=== PATIENT | female | born 1995 | race Hispanic/Latino ===

== ENCOUNTER 2019-04-11 19:08 | Inpatient (IN) | payer OTHER ==
[~2019-04-11 19:08] MED LIST: Bupivacaine HCl 0.5%/Epinephrine 1:200,000/PF 30 ml Vial ONE; Bupivacaine/Epinephrine 0.25% 30 ML VIAL ONE
[2019-04-11] MEDS: Lactated Ringer's 1,000 ML IV SCH (19:40)
[2019-04-11] MEDS ORDERED: Ondansetron PF 4 MG/2 ML Vial IVP PRN (19:48)
[2019-04-11] MEDS ORDERED: Butorphanol Tartrate 1 MG/ML VIAL SLOW IVP PRN (19:48)
[2019-04-11] MEDS ORDERED: hydrALAZINE 20 MG/ML VIAL SLOW IVP PRN (19:48)
[2019-04-11] MEDS ORDERED: Promethazine HCl 25 MG/ML VIAL IM PRN (19:48)
[2019-04-11] MEDS ORDERED: Acetaminophen 500 MG TAB PO PRN (19:48)
[2019-04-11 19:54] LABS: Hemoglobin 13.8 g/dL (12.0-16.0); Mean Corpuscular Hemoglobin 32.2 pg (27.0-31.0); Mean Platelet Volume 9.9 fL (7.4-10.4); Platelet Count 154 thou/uL (130-400); RBC Distribution Width 12.5 % (11.5-14.5); Red Blood Cell (RBC) Count 4.29 mill/uL (4.20-5.40); White Blood Cell (WBC) Count 12.1 thou/uL (4.8-10.8)
[2019-04-11] MEDS ORDERED: Misoprostol 200 MCG TAB RC PRN (20:00)
[2019-04-11] MEDS ORDERED: Lidocaine 1% (PF) 30 ML VIAL SC PRN (20:00)
[2019-04-11] MEDS ORDERED: NS w/ Oxytocin 10 units 500 ML IV SCH (20:00)
[2019-04-11] MEDS ORDERED: HYDROcodone/Acetaminophen 5/325 mg Tablet PO PRN ×2 (20:00)
[2019-04-11] MEDS ORDERED: Methylergonovine 0.2 MG/ML VIAL IM PRN (20:00)
[2019-04-11] MEDS ORDERED: Ibuprofen 800 MG TAB PO PRN (20:00)
[2019-04-11] MEDS ORDERED: NS / Oxytocin 40 units/1000ml 1,000 ML IV SCH (20:00)
[2019-04-11] MEDS ORDERED: Carboprost 250 MCG/ML AMP IM PRN (20:00)
[2019-04-11 20:07] VITALS: BMI 21.1
[2019-04-11] MEDS: Misoprostol 100 MCG TAB VAG SCH (20:11)
[2019-04-11 20:33] LABS: Syphilis Antibody Nonreactive (Nonreactive); Syphilis Antibody Index 0.03 S/CO (<1.00 Non-Reactive)
[2019-04-11 22:40] LABS: HBSAg Index 0.28 S/CO (0-0.99); HIV (1/2) Antibody/Antigen Non-Reactive (NonReactive); HIV 1/2 INDEX 0.06 S/CO (<1.00); Hep B Surf Ag Non-Reactive S/CO (NonReactive)
[2019-04-12] MEDS: Misoprostol 100 MCG TAB VAG SCH (00:15)
[2019-04-12] MEDS: NS w/ Oxytocin 10 units 500 ML IV SCH ×2 (00:16→09:48)
[2019-04-12] MEDS: Lactated Ringer's 1,000 ML IV SCH ×2 (03:46→17:26)
[2019-04-12] MEDS ORDERED: Fentanyl 4 mcg/Bup 0.1% Cadd 100 ML ONE ×2 (07:24→15:50)
[2019-04-12] MEDS ORDERED: Lidocaine 1.5%/Epinephrine 1:200,000 5 ML AMPUL IJ ONE (07:35)
[2019-04-12] MEDS ORDERED: diphenhydrAMINE 50 MG/ML VIAL IVP PRN (08:47)
[2019-04-12] MEDS ORDERED: ePHEDrine/0.9% NaCl/PF SYRINGE 50 mg/10 ml SLOW IVP PRN (08:47)
[2019-04-12] MEDS ORDERED: Ondansetron PF 4 MG/2 ML Vial IVP PRN ×2 (08:47→21:08)
[2019-04-12] MEDS ORDERED: Acetaminophen 325 MG TAB PO PRN (08:47)
[2019-04-12] MEDS ORDERED: Naloxone HCl 0.4 mg/ml Vial IVP PRN ×2 (08:47)
[2019-04-12] MEDS ORDERED: Promethazine HCl 25 MG/ML VIAL IM PRN ×2 (08:47→21:08)
[2019-04-12] MEDS ORDERED: Lactated Ringer's 500 ML IV PRN (08:47)
[2019-04-12] MEDS ORDERED: Communication Order-Pharmacy FS SCH (09:00)
[2019-04-12] MEDS ORDERED: Fentanyl 4 mcg/Bupivacaine 0.1% Cassette 100 ML EPIDURAL SCH (09:00)
[2019-04-12] MEDS ORDERED: HYDROcodone/Acetaminophen 5/325 mg Tablet PO PRN ×2 (21:08)
[2019-04-12] MEDS ORDERED: NS / Oxytocin 40 units/1000ml 1,000 ML IV SCH (21:08)
[2019-04-12] MEDS ORDERED: Benzocaine-Menthol 82.5 ML CAN TOP PRN (21:08)
[2019-04-12] MEDS ORDERED: Bisacodyl 10 MG SUPP PR PRN (21:08)
[2019-04-12] MEDS ORDERED: hydrALAZINE 20 MG/ML VIAL SLOW IVP PRN (21:08)
[2019-04-12] MEDS ORDERED: diphenhydrAMINE 25 MG CAP PO PRN (21:08)
[2019-04-12] MEDS ORDERED: Preparation H Ointment 28 GM TUBE PR PRN (21:08)
[2019-04-12] MEDS ORDERED: Lanolin Ointment 7 GM TUBE TOP PRN (21:08)
[2019-04-12] MEDS ORDERED: Milk Of Magnesia 30 ML UDCUP PO PRN (21:08)
[2019-04-12] MEDS ORDERED: cloNIDine 0.1 MG TAB PO SCH (21:30)
[2019-04-12] MEDS: Ibuprofen 800 MG TAB PO SCH (21:47)
[2019-04-12] MEDS: Docusate Calcium (SURFAK) 240 MG CAP PO SCH (21:47)
[2019-04-13] MEDS: Misoprostol 100 MCG TAB VAG SCH (01:38)
[2019-04-13] MEDS: Lactated Ringer's 1,000 ML IV SCH (01:39)
[2019-04-13 05:22] LABS: Hemoglobin 12.7 g/dL (12.0-16.0); Mean Corpuscular HGB CONC 33.6 g/dL (32.0-36.0); Mean Corpuscular Hemoglobin 31.6 pg (27.0-31.0); Mean Corpuscular Volume 93.9 fL (78.0-98.0); Platelet Count 124 thou/uL (130-400); RBC Distribution Width 12.5 % (11.5-14.5); Red Blood Cell (RBC) Count 4.03 mill/uL (4.20-5.40); White Blood Cell (WBC) Count 18.1 thou/uL (4.8-10.8)
[2019-04-13] MEDS: Ibuprofen 800 MG TAB PO SCH ×3 (05:52→21:51)
[2019-04-13] MEDS ORDERED: Adacel (T-DAP) 0.5 ML SYRINGE IM ONE (09:00)
[2019-04-13] MEDS: Ferrous Sulfate 325 MG TAB PO SCH ×2 (09:15→16:48)
[2019-04-13] MEDS: Prenatal Vitamin 1 TAB PO SCH (09:33)
[2019-04-13] MEDS: Docusate Calcium (SURFAK) 240 MG CAP PO SCH ×2 (09:33→21:51)
[2019-04-14] MEDS: Ibuprofen 800 MG TAB PO SCH (05:18)
[2019-04-14 08:19] VITALS: BP 117/76; TEMP 98.2
[2019-04-14] MEDS: Docusate Calcium (SURFAK) 240 MG CAP PO SCH (08:58)
[2019-04-14] MEDS: Prenatal Vitamin 1 TAB PO SCH (08:58)
[2019-04-14] MEDS: Ferrous Sulfate 325 MG TAB PO SCH (08:59)
== END 2019-04-14 09:35 | disposition home or self-care (01) | DRG 807 ==
LOC: L&D 19:08 → 3SW 04-12 23:55
PROVIDERS: ADMIT Family Medicine; ATTEND Family Medicine
PROC: 10E0XZZ Delivery of Products of Conception, External Approach (ICD-10-PCS; principal; 2019-04-12)
PROC: 10907ZC Drainage of Amniotic Fluid, Therapeutic from Products of Conception, Via Natural or Artificial Opening (ICD-10-PCS; 2019-04-12)
PROC: 3E0P7VZ Introduction of Hormone into Female Reproductive, Via Natural or Artificial Opening (ICD-10-PCS; 2019-04-12)
PROC: 0HQ9XZZ Repair Perineum Skin, External Approach (ICD-10-PCS; 2019-04-12)
DX: O36.5930 Maternal care for other known or suspected poor fetal growth, third trimester, not applicable or unspecified (principal); Z37.0 Single live birth; Z3A.38 38 weeks gestation of pregnancy; O70.0 First degree perineal laceration during delivery
CPT/HCPCS: 36415; 51702; 85027; 86780; 86850; 86900; 86901; 87340; 87389; J0670; J2590; J3490

== ENCOUNTER 2020-05-01 08:43 | Outpatient (CLI) | payer OTHER ==
--- NOTE | 2020-05-01 11:30 | ULT ---
ULTRASOUND COMPLETE GREATER THAN 14 WEEKS. HISTORY: anatomy. FINDINGS: Single viable intrauterine fetus is noted in a transverse lie on the maternal left side. The placent a is posterior with a low-lying placenta with the placenta edge being within approximately 2 cm of th e internal cervical os, evidence for at least a borderline marginal placenta previa. Consider follow up examination later in . heart rate 146 b.p.m. Amniotic fluid within normal limits. Anatomy: Visualized brain, 4-chamber heart, 3-vessel cord, stomach, bladder, kidneys, spine, and extremi ty regions were unremarkable. Cervical length 4.9 cm. Biometry: BPD 4.6 cm-19 weeks 6 days Head circumference 16.9 cm-19 weeks 4 days Abdominal circumference 14.5 cm-19 weeks 6 days Femur length 3.1 cm-19 weeks 5 days Gestational age average 19 weeks 6 days. Estimated date of delivery 09/19/2020. Estimated weight 308 gm. IMPRESSION: Somewhat low-lying posterior placenta consistent with a borderline marginal previa at this time. Consider followup examination in that regard later in . POS: OFF
== END 2020-05-01 08:44 | disposition home or self-care (01) ==
LOC: BICULT 08:43
PROVIDERS: ATTEND Family Medicine
DX: O44.42 Low lying placenta NOS or without hemorrhage, second trimester (principal); Z3A.19 19 weeks gestation of pregnancy
CPT/HCPCS: 76805

== ENCOUNTER 2020-09-06 03:54 | Inpatient (IN) | payer MEDICAID, OTHER, SELFPAY ==
[2020-09-06] MEDS ORDERED: Acetaminophen 500 MG TAB PO PRN (05:02)
[2020-09-06] MEDS ORDERED: Lidocaine 1% (PF) 30 ML VIAL SC PRN (05:02)
[2020-09-06] MEDS ORDERED: Methylergonovine 0.2 MG/ML VIAL IM PRN (05:02)
[2020-09-06] MEDS ORDERED: NS / Oxytocin 40 units/1000ml 1,000 ML IV PRN (05:02)
[2020-09-06] MEDS ORDERED: Diphenoxylate HCl/Atropine Tablet PO PRN ×2 (05:02)
[2020-09-06] MEDS ORDERED: Promethazine HCl 25 MG/ML VIAL IM PRN ×3 (05:02→08:18)
[2020-09-06] MEDS ORDERED: Butorphanol Tartrate 1 MG/ML VIAL SLOW IVP PRN (05:02)
[2020-09-06] MEDS ORDERED: Ibuprofen 800 MG TAB PO PRN (05:02)
[2020-09-06] MEDS ORDERED: HYDROcodone/Acetaminophen 5/325 mg Tablet PO PRN ×4 (05:02→08:18)
[2020-09-06] MEDS ORDERED: Ondansetron PF 4 MG/2 ML Vial IVP PRN ×3 (05:02→08:18)
[2020-09-06] MEDS ORDERED: hydrALAZINE 20 MG/ML VIAL SLOW IVP PRN ×2 (05:02→08:18)
[2020-09-06] MEDS ORDERED: Carboprost 250 MCG/ML AMP IM PRN (05:02)
[2020-09-06] MEDS ORDERED: Misoprostol 200 MCG TAB PR PRN (05:02)
[2020-09-06] MEDS ORDERED: Lactated Ringer's 1,000 ML IV SCH (05:15)
[2020-09-06] MEDS ORDERED: Fentanyl 4 mcg/Bup 0.1% Cadd 100 ML in Premix Bag 1 BAG EPIDURAL SCH (05:15)
[2020-09-06 05:18] VITALS: BMI 25.9
[2020-09-06 05:28] LABS: Hemoglobin 13.8 g/dL (12.0-16.0); Mean Corpuscular HGB CONC 33.9 g/dL (32.0-36.0); Mean Corpuscular Volume 91.3 fL (78.0-98.0); Mean Platelet Volume 9.9 fL (7.4-10.4); Platelet Count 193 thou/uL (130-400); RBC Distribution Width 14.4 % (11.5-14.5); Red Blood Cell (RBC) Count 4.45 mill/uL (4.20-5.40); White Blood Cell (WBC) Count 13.3 thou/uL (4.8-10.8)
[2020-09-06 06:02] LABS: HBSAg Index 0.14 S/CO (0-0.99); Hep B Surf Ag Non-Reactive S/CO (NonReactive)
[2020-09-06 06:09] LABS: Syphilis Antibody Nonreactive (Nonreactive); Syphilis Antibody Index 0.03 S/CO (<1.00 Non-Reactive)
[2020-09-06] MEDS ORDERED: Acetaminophen 325 MG TAB PO PRN (06:20)
[2020-09-06] MEDS ORDERED: Lactated Ringer's 500 ML IV PRN (06:20)
[2020-09-06] MEDS ORDERED: Naloxone HCl 0.4 mg/ml Vial IVP PRN ×2 (06:20)
[2020-09-06] MEDS ORDERED: diphenhydrAMINE 50 MG/ML VIAL IVP PRN (06:20)
[2020-09-06] MEDS ORDERED: ePHEDrine 50 MG/ML VIAL SLOW IVP PRN (06:20)
[2020-09-06] MEDS ORDERED: Fentanyl 4 mcg/Bupivacaine 0.1% Cassette 100 ML EPIDURAL SCH (06:30)
[2020-09-06] MEDS ORDERED: Communication Order-Pharmacy FS SCH (06:30)
[2020-09-06] MEDS ORDERED: Milk Of Magnesia 30 ML UDCUP PO PRN (08:18)
[2020-09-06] MEDS ORDERED: Bisacodyl 10 MG SUPP PR PRN (08:18)
[2020-09-06] MEDS ORDERED: diphenhydrAMINE 25 MG CAP PO PRN (08:18)
[2020-09-06] MEDS ORDERED: Adacel (T-DAP) 0.5 ML SYRINGE IM ONE (08:18)
[2020-09-06] MEDS ORDERED: Lanolin Ointment 7 GM TUBE TOP PRN (08:18)
[2020-09-06] MEDS ORDERED: NS / Oxytocin 40 units/1000ml 1,000 ML IV SCH (08:18)
[2020-09-06] MEDS: Ibuprofen 800 MG TAB PO SCH ×3 (10:42→22:00)
[2020-09-06] MEDS: Docusate Calcium (SURFAK) 240 MG CAP PO SCH ×2 (10:43→22:00)
[2020-09-06] MEDS: Prenatal Vitamin 1 TAB PO SCH (10:43)
[2020-09-06] MEDS ORDERED: Bupivacaine/Epinephrine 0.25% 30 ML VIAL ONE (12:51)
[2020-09-06 13:05] LABS: SARS-CoV-2 MS2 Positive; SARS-CoV-2 N Gene Negative; SARS-CoV-2 S Gene Negative; SARS-CoV-2 by NAA Not Detected (NotDetected); SARS-CoV-2 orf1ab Negative
[2020-09-06] MEDS: Ferrous Sulfate 325 MG TAB PO SCH (19:13)
[2020-09-07] MEDS: Ibuprofen 800 MG TAB PO SCH (05:19)
[2020-09-07 06:24] VITALS: BP 111/72; TEMP 98.3
[2020-09-07] MEDS: Docusate Calcium (SURFAK) 240 MG CAP PO SCH (09:45)
[2020-09-07] MEDS: Prenatal Vitamin 1 TAB PO SCH (09:45)
[2020-09-07] MEDS: Ferrous Sulfate 325 MG TAB PO SCH (09:46)
== END 2020-09-07 13:20 | disposition home or self-care (01) | DRG 807 ==
LOC: L&D/OP 03:54 → L&D 04:27 → 3SW 09:32
PROVIDERS: ADMIT Family Medicine; ATTEND Family Medicine
PROC: 10E0XZZ Delivery of Products of Conception, External Approach (ICD-10-PCS; principal; 2020-09-06)
DX: O62.3 Precipitate labor (principal); Z37.0 Single live birth; Z20.828 Contact with and (suspected) exposure to other viral communicable diseases; Z3A.38 38 weeks gestation of pregnancy; O77.0 Labor and delivery complicated by meconium in amniotic fluid
CPT/HCPCS: 36415; 51702; 85027; 86780; 86850; 86900; 86901; 87340; 87635; 99285; U0003

== ENCOUNTER 2023-08-11 15:08 | Outpatient (CLI) | payer OTHER | END 2023-08-11 15:09 | disposition home or self-care (01) | LOC: BICULT 15:08 | PROVIDERS: ATTEND Family Medicine | DX: O09.892 Supervision of other high risk pregnancies, second trimester (principal); O44.42 Low lying placenta NOS or without hemorrhage, second trimester; Z3A.23 23 weeks gestation of pregnancy | CPT/HCPCS: 76805 ==

== ENCOUNTER 2023-11-30 05:55 | Emergency (ER) | payer OTHER | END 2023-11-30 07:09 | disposition short-term general hospital (02) | LOC: ERS 05:55 | DX: O60.03 Preterm labor without delivery, third trimester (principal); Z3A.37 37 weeks gestation of pregnancy | CPT/HCPCS: 99284 ==